=== PATIENT | female | born 1990 | race Caucasian/White ===

== ENCOUNTER 2024-12-16 12:52 | Emergency (ER) | payer MEDICAID ==
[~2024-12-16] VITALS: Ht 160 cm; Wt 60.1 kg
[2024-12-16 12:55] VITALS: BP 104/58; PULSE 75; O2SAT 98
[2024-12-16 14:32] VITALS: RESP 16; TEMP 98.5
== END 2024-12-16 14:34 | disposition home or self-care (01) ==
LOC: ER 12:53
DX: B34.9 Viral infection, unspecified (principal)
CPT/HCPCS: 99282